=== PATIENT | female | born 1950 | race Caucasian/White ===

== ENCOUNTER → 2017-04-08 | Outpatient (CLI) | payer MEDICARE ==
[~2017-04-08] MED LIST: ACET325T11 PO; ASPI81TA82 PO; MELO15 PO; METO50 PO; RAMI10CA35 PO; WOMECAP2 PO; ZOCO40TA PO
--- NOTE | 2017-04-11 11:45 | RSPPFT ---
DATE OF PROCEDURE: 04/08/17 COMMENTS: Spirometry with FVC of 2.4 predicted 2.4, FEV1 of 1.7 predicted 1.9, FEV1/FVC ratio 71% predicted 83%. Lung volumes are essentially within the predicted range. DLCO is 75% of predicted but within the predicted range when corrected for alveolar volume. IMPRESSION:
== END ==
LOC: HRSP 09:46
PROVIDERS: ATTEND Internal Medicine Cardiovascular Disease
DX: R06.02 Shortness of breath (principal)
CPT/HCPCS: 94060; 94726; 94729